=== PATIENT | male | born 1985 | race Caucasian/White ===

== ENCOUNTER 2018-12-30 22:36 | Inpatient (IN) | payer OTHER ==
[2018-12-30] MEDS ORDERED: NACL 0.9% 1000 ML 1,000 ML ONE (23:00)
[2018-12-30] MEDS ORDERED: ZOFRAN IV ONE (23:01)
[2018-12-30] MEDS ORDERED: NACL 0.9% 1000 ML 1,000 ML IV ONE (23:01)
--- NOTE | 2018-12-30 23:04 | Emergency Department Report ---
ED Abdominal Pain HPI - General Chief Complaint: Alcohol Stated Complaint: HEAD INJURY Time Seen by Provider: 12/30/18 22:59 Source: patient, EMS Mode of arrival: Stretcher Limitations: No Limitations - History of Present Illness Initial Comments: Patient is a 33-year-old male that presents emergency room with complaints of syncopal episode 1. Patient also complains of abdominal pain, nausea vomiting and diarrhea. Patient states he's had blood in both his vomitus in his stool. Patient states the pain is 10 out of 10. Patient states the pain is nonradiating. Patient states the pain is in his epigastric region. Patient states the pain is worsening. Patient states the pain is worse with vomiting and movement and palpation. He states the pain is better with rest. MD Complaint: abdominal pain -: Sudden Location: epigastric Radiation: none Migration to: no migration Severity: severe Severity scale (0 -10): 10 Quality: stabbing, sharp Consistency: constant Improves With: rest Worsens With: eating, vomiting, movement Associated Symptoms: nausea, vomiting, diarrhea, hematemesis, hematochezia, melena. denies: fever, chills, constipation, dysuria, hematuria, anorexia, syncope - Related Data Home Medications Medication Instructions Recorded Confirmed Last Taken No Known Home Medications [No 12/30/18 12/30/18 Unknown Reported Home Medications] Allergies Allergy/AdvReac Type Severity Reaction Status Date / Time No Known Allergies Allergy Unverified 12/30/18 23:10 ED Review of Systems ROS: Stated complaint: HEAD INJURY Other details as noted in HPI Constitutional: denies: chills, fever Eyes: denies: eye pain, eye discharge, vision change ENT: denies: ear pain, throat pain Respiratory: denies: cough, shortness of breath, wheezing Cardiovascular: denies: chest pain, palpitations Endocrine: no symptoms reported Gastrointestinal: abdominal pain, nausea, vomiting, diarrhea, hematemesis, melena, hematochezia. denies: constipation Genitourinary: denies: urgency, dysuria Musculoskeletal: denies: back pain, joint swelling, arthralgia Skin: denies: rash, lesions Neurological: denies: headache, weakness, paresthesias Psychiatric: denies: anxiety, depression Hematological/Lymphatic: denies: easy bleeding, easy bruising ED Past Medical Hx - Past Medical History Previous Medical History?: No - Surgical History Past Surgical History?: No - Family History Family history: no significant - Social History Smoking Status: Never Smoker Substance Use Type: Alcohol - Medications Home Medications: Home Medications Medication Instructions Recorded Confirmed Last Taken Type No Known Home Medications [No 12/30/18 12/30/18 Unknown History Reported Home Medications] ED Physical Exam - General Limitations: No Limitations, Language Barrier General appearance: alert, in no apparent distress - Head Head exam: Present: atraumatic, normocephalic - Eye Eye exam: Present: normal appearance, PERRL Pupils: Present: normal accommodation - ENT ENT exam: Present: mucous membranes moist - Neck Neck exam: Present: normal inspection - Respiratory Respiratory exam: Present: normal lung sounds bilaterally. Absent: respiratory distress - Cardiovascular Cardiovascular Exam: Present: regular rate, normal rhythm. Absent: systolic murmur, diastolic murmur, rubs, gallop - GI/Abdominal GI/Abdominal exam: Present: soft, tenderness (generalized tenderness), normal bowel sounds - Rectal Rectal exam: Present: normal rectal tone, heme (+) stool, normal prostate. Absent: hemorrhoids, tenderness - Extremities Exam Extremities exam: Present: normal inspection - Back Exam Back exam: Present: normal inspection - Neurological Exam Neurological exam: Present: alert, oriented X3 - Psychiatric Psychiatric exam: Present: normal affect, normal mood - Skin Skin exam: Present: warm, dry, intact, normal color. Absent: rash ED Course Vital Signs 12/30/18 12/31/18 12/31/18 23:00 00:01 00:31 Temperature 98.4 F Pulse Rate 101 H 93 H 102 H Respiratory 17 23 23 Rate Blood Pressure 127/83 121/69 127/83 Blood Pressure 140/80 [Left] O2 Sat by Pulse 95 96 97 Oximetry 12/31/18 01:31 Temperature Pulse Rate 92 H Respiratory 19 Rate Blood Pressure 120/73 Blood Pressure [Left] O2 Sat by Pulse 97 Oximetry - Reevaluation(s) Reevaluation #1: Patient resting in bed. Discussed all results with patient. Patient agrees with plan of care and admission. GI will be consulted. 12/31/18 01:13 - Consultations Consultation #1: GI consulted. 12/31/18 01:[address] Simona Leach. Dr. Leach wants patient nothing by mouth after midnight and admitted to the hospitalist service. 12/31/18 02:04 Consultation #2: Hospitalist consulted for admission. Hospitalist to admit patient and assume care of patient. 12/31/18 02:09 ED Medical Decision Making - Lab Data Result diagrams: 12/30/18 23:09 12/30/18 23:09 - EKG Data -: EKG Interpreted by Me EKG shows normal: sinus rhythm, axis, intervals, QRS complexes, ST-T waves Rate: normal - Radiology Data Radiology results: report reviewed FINAL REPORT PROCEDURE: CT ABDOMEN PELVIS WO CON TECHNIQUE: Computerized axial tomography of the abdomen and pelvis was performed without intravenous contrast. This study is performed without intravascular contrast material and its sensitivity for abdominal and pelvic pathology, including neoplasms, inflammatio n, abscess, free fluid, thrombosis, arterial dissection and infarction, is reduced compared with a contrast enhanced study. HISTORY: Abdominal Pain COMPARISON: No prior studies are available for comparison. FINDINGS: Visualized lower thorax: No significant abnormality. Liver: Liver is enlarged and fatty. Maximum diameter is 23 centimeters. There is no discrete mass.. Spleen: Normal size and attenuation. Gallbladder and biliary system: Normal. Pancreas: Normal. Adrenals: Normal. Kidneys: There is a 3 centimeters cyst in the midpole of the right kidney. There is a 1 centimeter stone in the midpole of the right kidney. There are no ureteral stones. There is no hydronephrosis.. GI tract: There is no bowel obstruction, colitis or enteritis. The appendix is normal.. Lymph nodes and mesentery: Normal. Vasculature: Normal. Bladder: Normal. Reproductive organs: Normal. Peritoneum: There is no ascites or free air, abscess or adenopathy.. Musculoskeletal structures: No significant abnormality. Other: None. IMPRESSION: Liver is enlarged and fatty. Maximum diameter is 23 centimeters. There is no discrete mass.. There is a 3 centimeters cyst in the midpole of the right kidney. There is a 1 centimeter stone in the midpole of the right kidney. There are no ureteral stones. There is no hydronephrosis.. There is no bowel obstruction, colitis or enteritis. The appendix is normal.. There is no ascites or free air, abscess or adenopathy.. FINAL REPORT PROCEDURE: CT HEAD/BRAIN WO CON TECHNIQUE: Computerized tomography of the head was performed without contrast material. HISTORY: Syncope COMPARISON: No prior studies are available for comparison. FINDINGS: Skull and scalp: Normal. Paranasal sinuses: Normal. Ventricles and subarachnoid spaces: Normal. Cerebrum: No evidence of hemorrhage, acute infarction or mass . Cerebellum and brainstem: No evidence of hemorrhage, acute infarction or mass. Vasculature: Normal. Comments: None. IMPRESSION: Normal Examination - Medical Decision Making Patient is a 33 year-old male that presents to the emergency room with complaints of abdominal pain, nausea vomiting, blood in his stool or vomitus, and syncopal episode. Syncope secondary to alcohol. Labs unremarkable except for hemoconcentration, hypokalemia,.. Blood alcohol level is elevated. D-dimer negative. The back given the patient saline bolus given the patient. Patient' s guaiac positive. GI consult and wants patient admitted. Hospitalist will admit patient. CT done of the head negative. CT scan of the abdomen was negative for acute findings except for fatty liver\ - Differential Diagnosis abdominal pain. Gastritis. Alcoholism. Nausea vomiting. GI bleed. Critical Care Time: Yes Critical care attestation.: If time is entered above; I have spent that time in minutes in the direct care of this critically ill patient, excluding procedure time. Critical Care Time: 45 minutes ED Disposition Clinical Impression: Blood in stool, Alcohol abuse Abdominal pain Qualifiers: Abdominal location: epigastric Qualified Code(s): R10.13 - Epigastric pain GI bleed Qualifiers: GI bleed type/associated pathology: gastritis Gastritis type: alcoholic Qualifi ed Code(s): K29.21 - Alcoholic gastritis with bleeding Gastritis Qualifiers: Gastritis type: alcoholic Chronicity: acute Gastritis bleeding: with bleeding Qualified Code(s): K29.21 - Alcoholic gastritis with bleeding Syncope Qualifiers: Syncope type: unspecified Qualified Code(s): R55 - Syncope and collapse Bloody vomitus Qualifiers: Nausea presence: with nausea Qualified Code(s): K92.0 - Hematemesis Disposition: 09 OP ADMIT IP TO THIS HOSP Is pt being admited?: Yes Does the pt Need Aspirin: No Condition: Critical Time of Disposition: 02:09
[2018-12-30 23:38] LABS: Basophils % (Auto) 0.5 % (0.0-1.8); Eosinophils # (Auto) 0.1 K/mm3 (0.0-0.4); Eosinophils % (Auto) 2.1 % (0.0-4.3); Hematocrit 45.8 % (35.5-45.6); Hemoglobin 15.6 gm/dl (11.8-15.2); Lymphocytes # (Auto) 1.1 K/mm3 (1.2-5.4); Lymphocytes % (Auto) 37.6 % (13.4-35.0); Mean Corpuscular HGB Conc 34 % (32-34); Mean Corpuscular Volume 96 fl (84-94); Monocytes # (Auto) 0.3 K/mm3 (0.0-0.8); Monocytes % (Auto) 10.3 % (0.0-7.3); Red Blood Count 4.76 M/mm3 (3.65-5.03); Red Cell Distribution Width 14.8 % (13.2-15.2)
[2018-12-30 23:42] LABS: Platelet Count 86 K/mm3 (140-440)
[2018-12-31 00:02] LABS: Creatine Kinase MB 2.2 ng/mL (0.0-4.0)
[2018-12-31 00:04] LABS: Alanine Aminotransferase 158 units/L (7-56); Albumin 4.8 g/dL (3.9-5); BUN/Creatinine Ratio 5; Blood Urea Nitrogen 3 mg/dL (9-20); Calcium 8.9 mg/dL (8.4-10.2); Hemolysis Index 11
[2018-12-31 00:06] LABS: Bilirubin,Direct < 0.2 mg/dL (0-0.2)
--- NOTE | 2018-12-31 00:54 | Cat Scan Report ---
FINAL REPORT PROCEDURE: CT HEAD/BRAIN WO CON TECHNIQUE: Computerized tomography of the head was performed without contrast material. HISTORY: Syncope COMPARISON: No prior studies are available for comparison. FINDINGS: Skull and scalp: Normal. Paranasal sinuses: Normal. Ventricles and subarachnoid spaces: Normal. Cerebrum: No evidence of hemorrhage, acute infarction or mass . Cerebellum and brainstem: No evidence of hemorrhage, acute infarction or mass. Vasculature: Normal. Comments: None. IMPRESSION: Normal Examination
--- NOTE | 2018-12-31 00:57 | Cat Scan Report ---
FINAL REPORT PROCEDURE: CT ABDOMEN PELVIS WO CON TECHNIQUE: Computerized axial tomography of the abdomen and pelvis was performed without intravenous contrast. This study is performed without intravascular contrast material and its sensitivity for ab dominal and pelvic pathology, including neoplasms, inflammation, abscess, free fluid, thrombosis, art erial dissection and infarction, is reduced compared with a contrast enhanced study. HISTORY: Abdominal Pain COMPARISON: No prior studies are available for comparison. FINDINGS: Visualized lower thorax: No significant abnormality. Liver: Liver is enlarged and fatty. Maximum diameter is 23 centimeters. There is no discrete mass.. Spleen: Normal size and attenuation. Gallbladder and biliary system: Normal. Pancreas: Normal. Adrenals: Normal. Kidneys: There is a 3 centimeters cyst in the midpole of the right kidney. There is a [address] one in the midpole of the right kidney. There are no ureteral stones. There is no hydronephrosis.. GI tract: There is no bowel obstruction, colitis or enteritis. The appendix is normal.. Lymph nodes and mesentery: Normal. Vasculature: Normal. Bladder: Normal. Reproductive organs: Normal. Peritoneum: There is no ascites or free air, abscess or adenopathy.. Musculoskeletal structures: No significant abnormality. Other: None. IMPRESSION: Liver is enlarged and fatty. Maximum diameter is 23 centimeters. There is no discrete mass.. There is a 3 centimeters cyst in the midpole of the right kidney. There is a 1 centimeter stone in th e midpole of the right kidney. There are no ureteral stones. There is no hydronephrosis.. There is no bowel obstruction, colitis or enteritis. The appendix is normal.. There is no ascites or free air, abscess or adenopathy.. .
[2018-12-31] MEDS ORDERED: FOLVITE 1 MG, INFUVITE 10 ML in NACL 0.9% 1000 ML 1,000 ML IV ONE (01:02)
[2018-12-31] MEDS ORDERED: VITAMIN B-1 PO ONE (02:00)
[2018-12-31] MEDS ORDERED: PROTONIX IV ONE (02:13)
[2018-12-31] MEDS ORDERED: TYLENOL PO PRN (02:33)
[2018-12-31] MEDS ORDERED: ZOFRAN IV PRN (02:33)
[2018-12-31] MEDS ORDERED: SODIUM CHLORIDE FLUSH SYRINGE 10 ML IV PRN (02:33)
[2018-12-31] MEDS ORDERED: MORPHINE IV PRN (02:33)
[2018-12-31] MEDS ORDERED: ATIVAN IV PRN ×2 (02:35)
--- NOTE | 2018-12-31 02:51 | History and Physical Report ---
History of Present Illness Date of examination: 12/31/18 History of present illness: 33-year-old man with a history of alcohol abuse comes emergency room with complaints of nausea, vomiting, diarrhea. Patient states that he took episodes of blood in his vomitus, 2 episodes, also had one episode of melena. He complains of abdominal pain, mid abdomen, dull, unable to say how long it lasts 4, intensity 5/10, no radiation, candidate and exacerbated factor. He stated he had decreased oral intake, feels weak, states he passed out for a few seconds Review of systems Constitutional: no weight loss, chills, fever Ears, eyes, nose, mouth and throat: no nasal congestion, no nasal discharge, no sinus pressure, no vision change, no red eye. Neck: No neck pain or rigidity. Cardiovascular: no palpitations, chest pain Respiratory: no cough, shortness of breath Gastrointestinal: +hematochezia, abdominal pain Genitourinary : no frequency , no hematuria Musculoskeletal: no joint swelling or muscle ache Integumentary: no rash, no pruritis Neurological: no parathesias, no focal weakness Endocrine: no cold or heat intolerance, no polyuria or polydipsia Hematologic/Lymphatic: no easy bruising, no easy bleeding, no gland swelling Allergic/Immunologic: no urticaria, no angioedema. PAST MEDICAL HISTORY: alcohol abuse PAST SURGICAL HISTORY: None SOCIAL HISTORY: Drink 25 beers a day, no drugs, smoke one pack a day FAMILY HISTORY: Hypertension Medications and Allergies Allergies Allergy/AdvReac Type Severity Reaction Status Date / Time No Known Allergies Allergy Unverified 12/30/18 23:10 Home Medications Medication Instructions Recorded Confirmed Last Taken Type No Known Home Medications [No 12/30/18 12/30/18 Unknown History Reported Home Medications] Active Meds: Active Medications Acetaminophen (Tylenol) 650 mg PO Q4H PRN PRN Reason: Pain MILD(1-3)/Fever >100.5/DONATO Folic Acid 1 mg/ Multivitamins /Minerals 10 ml/ Sodium Chloride 1,010.2 mls @ 250 mls/hr IV ONCE ONE Stop: 12/31/18 05:04 Last Admin: 12/31/18 01:26 Dose: 250 mls/hr Documented by: Sodium Chloride (Nacl 0.9% 1000 Ml) 1,000 mls @ 125 mls/hr IV DIRECT ROBIN Lorazepam (Ativan) 2 mg IV Q1HR PRN PRN Reason: CIWA-Ar 8-15 Lorazepam (Ativan) 4 mg IV Q1HR PRN PRN Reason: CIWA-Ar 16-25 Morphine Sulfate (Morphine) 2 mg IV Q4H PRN PRN Reason: Pain, Moderate (4-6) Ondansetron HCl (Zofran) 4 mg IV Q4H PRN PRN Reason: Nausea And Vomiting Pantoprazole Sodium (Protonix) 40 mg IV DAILY ROBIN Sodium Chloride (Sodium Chloride Flush Syringe 10 Ml) 10 ml IV BID ROBIN Sodium Chloride (Sodium Chloride Flush Syringe 10 Ml) 10 ml IV PRN PRN PRN Reason: LINE FLUSH Exam - Physical Exam Narrative exam: General Apperance: The patient lying in bed, breathing comfortable HEENT: Normocephalic, atraumatic. Pupils equally round and reactive to light, EOMI, no sclericterus or JVD or thyromegaly or nodule. , no carotid bruit, mucous membranes moist, no exudate or erythema Heart: S1-S2, regular is rhythm Lungs: Clear to auscultation bilaterally, breathing comfortable Abdomen: Positive bowel sounds, soft, nontender, nondistended, no organomegaly Extremities: No edema cyanosis clubbing Skin: no rash, nodule, warm and dry Neuro: cranial nerves 2-12 intact, speech is fluent, motor/sensory intact - Constitutional Vitals: Temp Pulse Resp BP Pulse Ox 98.4 F 90 21 104/59 92 12/30/18 23:00 12/31/18 02:31 12/31/18 02:31 12/31/18 02:31 12/31/18 02:31 Results - Labs CBC & Chem 7: 12/30/18 23:09 12/30/18 23:09 Labs: Abnormal lab results 12/30/18 12/30/18 12/30/18 Range/Units 23:09 23:09 23:09 WBC 2.9 L (4.5-11.0) K/mm3 Hgb 15.6 H (11.8-15.2) gm/dl Hct 45.8 H (35.5-45.6) % MCV 96 H (84-94) fl MCH 33 H (28-32) pg Plt Count 86 L (140-440) K/mm3 Lymph % (Auto) 37.6 H (13.4-35.0) % [place] % (Auto) 10.3 H (0.0-7.3) % Lymph # 1.1 L (1.2-5.4) K/mm3 Seg Neutrophils # 1.5 L (1.8-7.7) K/mm3 Potassium 3.3 L (3.6-5.0) mmol/L Carbon Dioxide 19 L (22-30) mmol/L BUN 3 L (9-20) mg/dL Creatinine 0.6 L (0.8-1.5) mg/dL AST 159 H (5-40) units/L ALT 158 H (7-56) units/L Total Creatine Kinase 362 H (55-170) units/L Plasma/Serum Alcohol (0-0.07) % 12/30/18 Range/Units 23:09 WBC (4.5-11.0) K/mm3 Hgb (11.8-15.2) gm/dl Hct (35.5-45.6) % MCV (84-94) fl MCH (28-32) pg Plt Count (140-440) K/mm3 Lymph % (Auto) (13.4-35.0) % [place] % (Auto) (0.0-7.3) % Lymph # (1.2-5.4) K/mm3 Seg Neutrophils # (1.8-7.7) K/mm3 Potassium (3.6-5.0) mmol/L Carbon Dioxide (22-30) mmol/L BUN (9-20) mg/dL Creatinine (0.8-1.5) mg/dL AST (5-40) units/L ALT (7-56) units/L Total Creatine Kinase (55-170) units/L Plasma/Serum Alcohol 0.34 H (0-0.07) % - Imaging and Cardiology CT scan - abdomen: report reviewed CT Scan - head: report reviewed CT scan - pelvis: report reviewed Assessment and Plan Assessment GIB, rule out ulcer versus other Gastroenteritis Alcohol abuse Thrombocytopenia Plan Admit to medicine Start IV fluid, Protonix Check serial hemoglobin, consult GI Check stool studies, amylase, lipase start CIWA protocol with IV Ativan DVT prophylaxis
[2018-12-31] MEDS ORDERED: NACL 0.9% 1000 ML 1,000 ML IV SCH ×2 (03:00→16:00)
[2018-12-31 03:25] LABS: Basophils % (Auto) 0.6 % (0.0-1.8); Eosinophils # (Auto) 0.1 K/mm3 (0.0-0.4); Eosinophils % (Auto) 2.2 % (0.0-4.3); Hematocrit 41.3 % (35.5-45.6); Hemoglobin 13.8 gm/dl (11.8-15.2); Lymphocytes # (Auto) 1.1 K/mm3 (1.2-5.4); Mean Corpuscular HGB Conc 33 % (32-34); Mean Corpuscular Volume 97 fl (84-94); Monocytes # (Auto) 0.2 K/mm3 (0.0-0.8); Monocytes % (Auto) 10.4 % (0.0-7.3); Red Blood Count 4.27 M/mm3 (3.65-5.03); Red Cell Distribution Width 14.7 % (13.2-15.2)
[2018-12-31 03:38] LABS: Platelet Count 62 K/mm3 (140-440)
[2018-12-31 03:42] LABS: BUN/Creatinine Ratio 5; Blood Urea Nitrogen 3 mg/dL (9-20); Calcium 7.7 mg/dL (8.4-10.2); Hemolysis Index 7
[2018-12-31] MEDS ORDERED: D5/0.45NS 1,000 ML IV ONE (04:27)
[2018-12-31] MEDS ORDERED: D50W (25GM) Syringe IV ONE ×2 (04:29→04:34)
[2018-12-31] MEDS: D5/0.45NS 1,000 ML IV SCH ×2 (04:36→11:08)
[2018-12-31 06:20] LABS: Hematocrit 39.5 % (35.5-45.6); Hemoglobin 13.4 gm/dl (11.8-15.2)
[2018-12-31] MEDS ORDERED: SODIUM CHLORIDE FLUSH SYRINGE 10 ML IV SCH (10:00)
[2018-12-31] MEDS ORDERED: PROTONIX IV SCH ×2 (10:00→11:00)
--- NOTE | 2018-12-31 10:12 | Gastroenterology Consultation ---
<DARI LINDSEY - Last Filed: 12/31/18 10:35> History of Present Illness - Reason for Consult Consult date: 12/31/18 GI bleed Requesting physician: LAST DAWN - History of Present Illness Patient is a 33 y/o male with PMH DM and ETOH abuse who presented to ED with c/o a syncopal episode (head CT negative; etiology likely 2/2 alcohol; blood alcohol level elevated upon admission), epigastric pain, and N/V with bloody emesis and dark stool to which GI has been consulted. Abd CT showed enlarged fatty liver but no acute findings. This morning patient was resting in bed w/o acute distress. 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 He reports N/V x 3 days with first 2 episodes with non-bloody emesis and then subsequent episodes with bright red bloody emesis. Admits to associated epigastric pain and chest discomfort/sore throat, along with dark stools (black/dark red) that began 2 days ago. He also previously had diarrhea which has now resolved. Denies fever, SOB, wt loss, dysphagia, or constipation. No hx of PUD or liver disease but has a hx of heavy alcohol use (25 beers/day). Underwent an EGD approximately 5 years ago with negative results per patient report. Past History Past Medical History: diabetes Past Surgical History: No surgical history Social history: alcohol abuse. denies: smoking Medications and Allergies Allergies Allergy/AdvReac Type Severity Reaction Status Date / Time No Known Allergies Allergy Unverified 12/30/18 23:10 Home Medications Medication Instructions Recorded Confirmed Last Taken Type Pantoprazole [Protonix] 40 mg PO QDAY #30 tablet 12/31/18 Unknown Rx Thiamine [Vitamin B-1] 100 mg PO QDAY #30 tablet 12/31/18 Unknown Rx Active Meds: Active Medications Acetaminophen (Tylenol) 650 mg PO Q4H PRN PRN Reason: Pain MILD(1-3)/Fever >100.5/DONATO Dextrose/Sodium Chloride (D5/0.45ns) 1,000 mls @ 125 mls/hr IV DIRECT ROBIN Last Admin: 12/31/18 04:36 Dose: 125 mls/hr Documented by: Lorazepam (Ativan) 2 mg IV Q1HR PRN PRN Reason: CIWA-Ar 8-15 Lorazepam (Ativan) 4 mg IV Q1HR PRN PRN Reason: CIWA-Ar 16-25 Last Admin: 12/31/18 03:30 Dose: 4 mg Documented by: Morphine Sulfate (Morphine) 2 mg IV Q4H PRN PRN Reason: Pain, Moderate (4-6) Ondansetron HCl (Zofran) 4 mg IV Q4H PRN PRN Reason: Nausea And Vomiting Sodium Chloride (Sodium Chloride Flush Syringe 10 Ml) 10 ml IV BID ROBIN Sodium Chloride (Sodium Chloride Flush Syringe 10 Ml) 10 ml IV PRN PRN PRN Reason: LINE FLUSH medications reviewed/updated as required Review of Systems - Review of Systems All systems: negative Gastrointestinal: abdominal pain, hematemesis, melena, other (sore throat/chest discomfort) Exam - Constitutional Vital Signs: Temp Pulse Resp BP Pulse Ox 98.4 F 90 18 107/63 96 12/31/18 07:19 12/31/18 07:19 12/31/18 07:19 12/31/18 07:19 12/31/18 07:19 General appearance: no acute distress - EENT Eyes: PERRL, EOM intact ENT: hearing intact - Respiratory Respiratory: bilateral: CTA - Cardiovascular Rhythm: regular Heart Sounds: Present: S1 & S2 - Gastrointestinal General gastrointestinal: Present: soft, tender (slight TTP in epigastric area), non-distended, normal bowel sounds - Neurologic Neurological: alert and oriented x3 - Labs CBC & Chem 7: 12/31/18 10:02 12/31/18 09:48 Lab Results: Laboratory Results - last 24 hr 12/30/18 12/30/18 12/30/18 23:09 23:09 23:09 WBC 2.9 L RBC 4.76 Hgb 15.6 H Hct 45.8 H MCV 96 H MCH 33 H MCHC 34 RDW 14.8 Plt Count 86 L Lymph % (Auto) 37.6 H [place] % (Auto) 10.3 H Eos % (Auto) 2.1 Baso % (Auto) 0.5 Lymph # 1.1 L [place] # 0.3 Eos # 0.1 Baso # 0.0 Seg Neutrophils % 49.5 Seg Neutrophils # 1.5 L D-Dimer Sodium 143 Potassium 3.3 L Chloride 102.1 Carbon Dioxide 19 L Anion Gap 25 BUN 3 L Creatinine 0.6 L Estimated GFR > 60 BUN/Creatinine Ratio 5 Glucose 92 POC Glucose Calcium 8.9 Total Bilirubin 0.70 Direct Bilirubin < 0.2 Indirect Bilirubin 0.5 AST 159 H ALT 158 H Alkaline Phosphatase 93 Total Creatine Kinase 362 H CK-MB (CK-2) 2.2 CK-MB (CK-2) Rel Index 0.6 Troponin T < 0.010 Total Protein 8.0 Albumin 4.8 Albumin/Globulin Ratio 1.5 Amylase Lipase 40 Plasma/Serum Alcohol Blood Type Antibody Screen 12/30/18 12/30/18 12/30/18 23:09 23:09 23:09 WBC RBC Hgb Hct MCV MCH MCHC RDW Plt Count Lymph % (Auto) [place] % (Auto) Eos % (Auto) Baso % (Auto) Lymph # [place] # Eos # Baso # Seg Neutrophils % Seg Neutrophils # D-Dimer 230.21 Sodium Potassium Chloride Carbon Dioxide Anion Gap BUN Creatinine Estimated GFR BUN/Creatinine Ratio Glucose POC Glucose Calcium Total Bilirubin Direct Bilirubin Indirect Bilirubin AST ALT Alkaline Phosphatase Total Creatine Kinase CK-MB (CK-2) CK-MB (CK-2) Rel Index Troponin T Total Protein Albumin Albumin/Globulin Ratio Amylase 80 Lipase Plasma/Serum Alcohol 0.34 H Blood Type Antibody Screen 12/30/18 12/31/18 12/31/18 23:09 03:08 03:08 WBC 2.4 L RBC 4.27 Hgb 13.8 Hct 41.3 MCV 97 H MCH 32 MCHC 33 RDW 14.7 Plt Count 62 L Lymph % (Auto) 46.0 H [place] % (Auto) 10.4 H Eos % (Auto) 2.2 Baso % (Auto) 0.6 Lymph # 1.1 L [place] # 0.2 Eos # 0.1 Baso # 0.0 Seg Neutrophils % 40.8 Seg Neutrophils # 1.0 L D-Dimer Sodium 143 Potassium 3.6 Chloride 106.4 Carbon Dioxide 21 L Anion Gap 19 BUN 3 L Creatinine 0.6 L Estimated GFR > 60 BUN/Creatinine Ratio 5 Glucose 77 POC Glucose Calcium 7.7 L Total Bilirubin Direct Bilirubin Indirect Bilirubin AST ALT Alkaline Phosphatase Total Creatine Kinase CK-MB (CK-2) CK-MB (CK-2) Rel Index Troponin T Total Protein Albumin Albumin/Globulin Ratio Amylase Lipase Plasma/Serum Alcohol Blood Type O POSITIVE Antibody Screen Negative 12/31/18 12/31/18 12/31/18 03:11 04:21 05:42 WBC RBC Hgb 13.4 Hct 39.5 MCV MCH MCHC RDW Plt Count Lymph % (Auto) [place] % (Auto) Eos % (Auto) Baso % (Auto) Lymph # [place] # Eos # Baso # Seg Neutrophils % Seg Neutrophils # D-Dimer Sodium Potassium Chloride Carbon Dioxide Anion Gap BUN Creatinine Estimated GFR BUN/Creatinine Ratio Glucose POC Glucose 60 L Calcium Total Bilirubin Direct Bilirubin Indirect Bilirubin AST ALT Alkaline Phosphatase Total Creatine Kinase CK-MB (CK-2) CK-MB (CK-2) Rel Index Troponin T Total Protein Albumin Albumin/Globulin Ratio Amylase 63 Lipase 36 Plasma/Serum Alcohol Blood Type Antibody Screen 12/31/18 06:26 WBC RBC Hgb Hct MCV MCH MCHC RDW Plt Count Lymph % (Auto) [place] % (Auto) Eos % (Auto) Baso % (Auto) Lymph # [place] # Eos # Baso # Seg Neutrophils % Seg Neutrophils # D-Dimer Sodium Potassium Chloride Carbon Dioxide Anion Gap BUN Creatinine Estimated GFR BUN/Creatinine Ratio Glucose POC Glucose 136 H Calcium Total Bilirubin Direct Bilirubin Indirect Bilirubin AST ALT Alkaline Phosphatase Total Creatine Kinase CK-MB (CK-2) CK-MB (CK-2) Rel Index Troponin T Total Protein Albumin Albumin/Globulin Ratio Amylase Lipase Plasma/Serum Alcohol Blood Type Antibody Screen Assessment and Plan 1.GI bleed 2.hematemesis/dark stool (melena?) 3.epigastric pain 5.ETOH abuse -afebrile, WBC 2.4 -H/H 13.4/39.5 -continue to monitor H/H and transfuse as needed -transaminitis-AST 159/ALT 158 -lipase WNL -plt 62, INR pending -abd CT showed enlarged fatty liver -patient reports N/V x 3 days with hematemesis noted after first 2 episodes of vomiting and dark stools x 2 day- upon exam this am, patient had an episode vomiting with a scant amount of bright red bloody emesis -currently HD stable -etiology-possibly 2/2 M-W tear vs esophagitis vs ulcer vs other (doubt varices given H/H and BUN WNL) -will schedule for EGD today -Neep NPO -continue PPI -continue to trend labs and supportive care -alcohol cessation discussed with patient-monitor for signs of withdrawal -will follow <SANTI MEHTA R - Last Filed: 12/31/18 16:30> Medications and Allergies Active Meds: Active Medications Acetaminophen (Tylenol) 650 mg PO Q4H PRN PRN Reason: Pain MILD(1-3)/Fever >100.5/DONATO Dextrose/Sodium Chloride (D5/0.45ns) 1,000 mls @ 125 mls/hr IV DIRECT [facility] Last Admin: 12/31/18 11:08 Dose: 125 mls/hr Documented by: Sodium Chloride (Nacl 0.9% 1000 Ml) 1,000 mls @ 50 mls/hr IV DIRECT [facility] Last Admin: 12/31/18 15:51 Dose: 50 mls/hr Documented by: Lorazepam (Ativan) 2 mg IV Q1HR PRN PRN Reason: Mayank 8-15 Last Admin: 12/31/18 11:00 Dose: 2 mg Documented by: Lorazepam (Ativan) 4 mg IV Q1HR PRN PRN Reason: Mayank 16-25 Last Admin: 12/31/18 03:30 Dose: 4 mg Documented by: Morphine Sulfate (Morphine) 2 mg IV Q4H PRN PRN Reason: Pain, Moderate (4-6) Ondansetron HCl (Zofran) 4 mg IV Q4H PRN PRN Reason: Nausea And Vomiting Pantoprazole Sodium (Protonix) 40 mg IV BID [facility] Last Admin: 12/31/18 10:59 Dose: 40 mg Documented by: Sodium Chloride (Sodium Chloride Flush Syringe 10 Ml) 10 ml IV BID [facility] Last Admin: 12/31/18 10:59 Dose: 10 ml Documented by: Sodium Chloride (Sodium Chloride Flush Syringe 10 Ml) 10 ml IV PRN PRN PRN Reason: LINE FLUSH Exam - Constitutional Vital Signs: Temp Pulse Resp BP Pulse Ox 98.3 F 99 H 21 134/80 93 12/31/18 15:44 12/31/18 15:44 12/31/18 15:44 12/31/18 15:44 12/31/18 15:44 - Labs CBC & Chem 7: 12/31/18 10:02 12/31/18 09:48 Lab Results: Laboratory Results - last 24 hr 12/30/18 12/30/18 12/30/18 23:09 23:09 23:09 WBC 2.9 L RBC 4.76 Hgb 15.6 H Hct 45.8 H MCV 96 H MCH 33 H MCHC 34 RDW 14.8 Plt Count 86 L Lymph % (Auto) 37.6 H [place] % (Auto) 10.3 H Eos % (Auto) 2.1 Baso % (Auto) 0.5 Lymph # 1.1 L [place] # 0.3 Eos # 0.1 Baso # 0.0 Seg Neutrophils % 49.5 Seg Neutrophils # 1.5 L PT INR D-Dimer Sodium 143 Potassium 3.3 L Chloride 102.1 Carbon Dioxide 19 L Anion Gap 25 BUN 3 L Creatinine 0.6 L Estimated GFR > 60 BUN/Creatinine Ratio 5 Glucose 92 POC Glucose Calcium 8.9 Total Bilirubin 0.70 Direct Bilirubin < 0.2 Indirect Bilirubin 0.5 AST 159 H ALT 158 H Alkaline Phosphatase 93 Total Creatine Kinase 362 H CK-MB (CK-2) 2.2 CK-MB (CK-2) Rel Index 0.6 Troponin T < 0.010 Total Protein 8.0 Albumin 4.8 Albumin/Globulin Ratio 1.5 Amylase Lipase 40 Plasma/Serum Alcohol Blood Type Antibody Screen 12/30/18 12/30/18 12/30/18 23:09 23:09 23:09 WBC RBC Hgb Hct MCV MCH MCHC RDW Plt Count Lymph % (Auto) [place] % (Auto) Eos % (Auto) Baso % (Auto) Lymph # [place] # Eos # Baso # Seg Neutrophils % Seg Neutrophils # PT INR D-Dimer 230.21 Sodium Potassium Chloride Carbon Dioxide Anion Gap BUN Creatinine Estimated GFR BUN/Creatinine Ratio Glucose POC Glucose Calcium Total Bilirubin Direct Bilirubin Indirect Bilirubin AST ALT Alkaline Phosphatase Total Creatine Kinase CK-MB (CK-2) CK-MB (CK-2) Rel Index Troponin T Total Protein Albumin Albumin/Globulin Ratio Amylase 80 Lipase Plasma/Serum Alcohol 0.34 H Blood Type Antibody Screen 12/30/18 12/31/18 12/31/18 23:09 03:08 03:08 WBC 2.4 L RBC 4.27 Hgb 13.8 Hct 41.3 MCV 97 H MCH 32 MCHC 33 RDW 14.7 Plt Count 62 L Lymph % (Auto) 46.0 H [place] % (Auto) 10.4 H Eos % (Auto) 2.2 Baso % (Auto) 0.6 Lymph # 1.1 L [place] # 0.2 Eos # 0.1 Baso # 0.0 Seg Neutrophils % 40.8 Seg Neutrophils # 1.0 L PT INR D-Dimer Sodium 143 Potassium 3.6 Chloride 106.4 Carbon Dioxide 21 L Anion Gap 19 BUN 3 L Creatinine 0.6 L Estimated GFR > 60 BUN/Creatinine Ratio 5 Glucose 77 POC Glucose Calcium 7.7 L Total Bilirubin Direct Bilirubin Indirect Bilirubin AST ALT Alkaline Phosphatase Total Creatine Kinase CK-MB (CK-2) CK-MB (CK-2) Rel Index Troponin T Total Protein Albumin Albumin/Globulin Ratio Amylase Lipase Plasma/Serum Alcohol Blood Type O POSITIVE Antibody Screen Negative 12/31/18 12/31/18 12/31/18 03:11 04:21 05:42 WBC RBC Hgb 13.4 Hct 39.5 MCV MCH MCHC RDW Plt Count Lymph % (Auto) [place] % (Auto) Eos % (Auto) Baso % (Auto) Lymph # [place] # Eos # Baso # Seg Neutrophils % Seg Neutrophils # PT INR D-Dimer Sodium Potassium Chloride Carbon Dioxide Anion Gap BUN Creatinine Estimated GFR BUN/Creatinine Ratio Glucose POC Glucose 60 L Calcium Total Bilirubin Direct Bilirubin Indirect Bilirubin AST ALT Alkaline Phosphatase Total Creatine Kinase CK-MB (CK-2) CK-MB (CK-2) Rel Index Troponin T Total Protein Albumin Albumin/Globulin Ratio Amylase 63 Lipase 36 Plasma/Serum Alcohol Blood Type Antibody Screen 12/31/18 12/31/18 12/31/18 06:26 09:48 09:48 WBC RBC Hgb Hct MCV MCH MCHC RDW Plt Count Lymph % (Auto) [place] % (Auto) Eos % (Auto) Baso % (Auto) Lymph # [place] # Eos # Baso # Seg Neutrophils % Seg Neutrophils # PT 14.2 INR 1.06 D-Dimer Sodium 142 Potassium 3.5 L Chloride 105.1 Carbon Dioxide 22 Anion Gap 18 BUN 2 L Creatinine 0.5 L Estimated GFR > 60 BUN/Creatinine Ratio 4 Glucose 108 H POC Glucose 136 H Calcium 7.6 L Total Bilirubin 0.90 Direct Bilirubin Indirect Bilirubin AST 141 H ALT 133 H Alkaline Phosphatase 73 Total Creatine Kinase CK-MB (CK-2) CK-MB (CK-2) Rel Index Troponin T Total Protein 7.1 Albumin 4.4 Albumin/Globulin Ratio 1.6 Amylase Lipase Plasma/Serum Alcohol Blood Type Antibody Screen 12/31/18 12/31/18 10:02 11:56 WBC RBC Hgb 14.0 Hct 40.8 MCV MCH MCHC RDW Plt Count Lymph % (Auto) [place] % (Auto) Eos % (Auto) Baso % (Auto) Lymph # [place] # Eos # Baso # Seg Neutrophils % Seg Neutrophils # PT INR D-Dimer Sodium Potassium Chloride Carbon Dioxide Anion Gap BUN Creatinine Estimated GFR BUN/Creatinine Ratio Glucose POC Glucose 89 Calcium Total Bilirubin Direct Bilirubin Indirect Bilirubin AST ALT Alkaline Phosphatase Total Creatine Kinase CK-MB (CK-2) CK-MB (CK-2) Rel Index Troponin T Total Protein Albumin Albumin/Globulin Ratio Amylase Lipase Plasma/Serum Alcohol Blood Type Antibody Screen Assessment and Plan Pt drinks approx 25 beers/d. States has not seen blood in stool recently. EGD planned.
[2018-12-31 10:13] LABS: Hematocrit 40.8 % (35.5-45.6)
[2018-12-31 10:26] LABS: INR 1.06 (0.87-1.13)
[2018-12-31 10:33] LABS: Alanine Aminotransferase 133 units/L (7-56); Albumin 4.4 g/dL (3.9-5); BUN/Creatinine Ratio 4; Blood Urea Nitrogen 2 mg/dL (9-20); Calcium 7.6 mg/dL (8.4-10.2); Hemolysis Index 8
--- NOTE | 2018-12-31 11:56 | Progress Note ---
Assessment and Plan Upper GI bleed - presented with hematemesis/dark stool (melena?) - -etiology-possibly 2/2 M-W tear vs esophagitis vs ulcer vs other -- plan for EGD today, monitor h/h, cont iv fluid - cont PPI Alcohol abuse, monitor for withdrawal Transamionitis, likley from alcohol abuse -lipase WNL -plt 62, INR normal -abd CT showed enlarged fatty liver thrombocytopenia, likely from chronic alcohol abuse DVt Px, SCD Brief History: Patient is a 33 y/o male with PMH DM and ETOH abuse who presented to ED with c/o a syncopal episode (head CT negative; etiology likely 2/2 alcohol; blood alcohol level elevated upon admission), epigastric pain, and N/V with bloody emesis and dark stool, GI has been consulted. Abd CT showed enlarged fatty liver but no acute findings. Plan for EGD today. Subjective Date of service: 12/31/18 Objective - Constitutional Vitals: Vital Signs - 12hr 12/31/18 12/31/18 12/31/18 00:01 00:31 01:31 Temperature Pulse Rate 93 H 102 H 92 H Respiratory 23 23 19 Rate Blood Pressure 121/69 127/83 120/73 O2 Sat by Pulse 96 97 97 Oximetry 12/31/18 12/31/18 12/31/18 02:31 03:00 03:31 Temperature Pulse Rate 90 84 79 Respiratory 21 19 22 Rate Blood Pressure 104/59 106/57 106/62 O2 Sat by Pulse 92 94 96 Oximetry 12/31/18 12/31/18 12/31/18 04:00 04:11 04:21 Temperature Pulse Rate 87 90 88 Respiratory 21 20 23 Rate Blood Pressure 113/55 106/57 106/57 O2 Sat by Pulse 94 95 94 Oximetry 12/31/18 12/31/18 12/31/18 04:31 04:40 05:05 Temperature Pulse Rate 89 97 H 90 Respiratory 19 22 Rate Blood Pressure 106/57 103/61 O2 Sat by Pulse 97 100 Oximetry 12/31/18 12/31/18 05:15 07:19 Temperature 98.1 F 98.4 F Pulse Rate 90 90 Respiratory 17 18 Rate Blood Pressure 102/64 107/63 O2 Sat by Pulse 96 96 Oximetry - Labs CBC & Chem 7: 12/31/18 10:02 12/31/18 09:48 Labs: Abnormal lab results 12/30/18 12/30/18 12/30/18 Range/Units 23:09 23:09 23:09 WBC 2.9 L (4.5-11.0) K/mm3 Hgb 15.6 H (11.8-15.2) gm/dl Hct 45.8 H (35.5-45.6) % MCV 96 H (84-94) fl MCH 33 H (28-32) pg Plt Count 86 L (140-440) K/mm3 Lymph % (Auto) 37.6 H (13.4-35.0) % [place] % (Auto) 10.3 H (0.0-7.3) % Lymph # 1.1 L (1.2-5.4) K/mm3 Seg Neutrophils # 1.5 L (1.8-7.7) K/mm3 Potassium 3.3 L (3.6-5.0) mmol/L Carbon Dioxide 19 L (22-30) mmol/L BUN 3 L (9-20) mg/dL Creatinine 0.6 L (0.8-1.5) mg/dL Glucose (75-100) mg/dL POC Glucose (70-105) Calcium (8.4-10.2) mg/dL AST 159 H (5-40) units/L ALT 158 H (7-56) units/L Total Creatine Kinase 362 H (55-170) units/L Plasma/Serum Alcohol (0-0.07) % 12/30/18 12/31/18 12/31/18 Range/Units 23:09 03:08 03:08 WBC 2.4 L (4.5-11.0) K/mm3 Hgb (11.8-15.2) gm/dl Hct (35.5-45.6) % MCV 97 H (84-94) fl MCH (28-32) pg Plt Count 62 L (140-440) K/mm3 Lymph % (Auto) 46.0 H (13.4-35.0) % [place] % (Auto) 10.4 H (0.0-7.3) % Lymph # 1.1 L (1.2-5.4) K/mm3 Seg Neutrophils # 1.0 L (1.8-7.7) K/mm3 Potassium (3.6-5.0) mmol/L Carbon Dioxide 21 L (22-30) mmol/L BUN 3 L (9-20) mg/dL Creatinine 0.6 L (0.8-1.5) mg/dL Glucose (75-100) mg/dL POC Glucose (70-105) Calcium 7.7 L (8.4-10.2) mg/dL AST (5-40) units/L ALT (7-56) units/L Total Creatine Kinase (55-170) units/L Plasma/Serum Alcohol 0.34 H (0-0.07) % 12/31/18 12/31/18 12/31/18 Range/Units 04:21 06:26 09:48 WBC (4.5-11.0) K/mm3 Hgb (11.8-15.2) gm/dl Hct (35.5-45.6) % MCV (84-94) fl MCH (28-32) pg Plt Count (140-440) K/mm3 Lymph % (Auto) (13.4-35.0) % [place] % (Auto) (0.0-7.3) % Lymph # (1.2-5.4) K/mm3 Seg Neutrophils # (1.8-7.7) K/mm3 Potassium 3.5 L (3.6-5.0) mmol/L Carbon Dioxide (22-30) mmol/L BUN 2 L (9-20) mg/dL Creatinine 0.5 L (0.8-1.5) mg/dL Glucose 108 H (75-100) mg/dL POC Glucose 60 L 136 H (70-105) Calcium 7.6 L (8.4-10.2) mg/dL AST 141 H (5-40) units/L ALT 133 H (7-56) units/L Total Creatine Kinase (55-170) units/L Plasma/Serum Alcohol (0-0.07) %
[2018-12-31] MEDS ORDERED: K-DUR PO ONE (13:05)
[2018-12-31] MEDS ORDERED: DIPRIVAN 10 MG/ML IV ONE ×2 (15:18)
[2018-12-31] MEDS ORDERED: VERSED ONE (15:33)
[2018-12-31] MEDS ORDERED: WATER FOR IRRIG STERILE IR ONE (16:01)
--- NOTE | 2018-12-31 16:32 | Post Operative Note ---
Pre-op diagnosis: Hematemesis Post-op diagnosis: other (Mild nonerosive gastritis. No varices, ulcers, or esophagitis.) Findings: 1. Normal EGD with mild-moderate erythema of stomach. Procedure: EGD Anesthesia: MAC Surgeon: SANTI MEHTA Estimated blood loss: none Pathology: none Condition: stable Disposition: floor (No evidence of bleed. Rectal exam shows light yellow-brown stool, no blood. Elevated LFTs due to EtOH, but could be hepatitis.)
--- NOTE | 2018-12-31 16:56 | Operative Report ---
PROCEDURE: Upper endoscopy. PREOPERATIVE DIAGNOSIS: Hematemesis. POSTOPERATIVE DIAGNOSIS: Mild nonerosive gastritis. SEDATION: MAC by Anesthesia. HISTORY: The patient is a 33-year-old man who abuses alcohol and has elevated alcohol in his blood stream. He has elevated liver enzymes. He describes hematemesis. Procedure, indications, risks, and benefits were explained and consent was obtained. The patient was placed in left lateral decubitus position and sedated. [employer] video upper endoscope was passed through the mouth and oropharynx into the descending duodenum. Scope was then gradually withdrawn with close inspection of the mucosa. FINDINGS: 1. Normal-appearing esophagus with sharp Z-line located at 37 cm from the incisors. There is no evidence of varices or Reyna-Richey tear. There was no evidence of esophagitis. 2. Mild to moderate patchy erythema throughout the gastric body consistent with mild nonerosive gastritis, may be related to alcohol. 3. Otherwise, normal stomach. 4. Normal appearing duodenal bulb and duodenum. The patient tolerated the procedure well without immediate complications. IMPRESSION: 1. Nonerosive gastritis. 2. Otherwise, normal upper endoscopy with no evidence of bleeding source. [facility]# [id number] HRC/NTS
--- NOTE | 2018-12-31 17:54 | Discharge Summary ---
Providers - Providers Date of Admission: 12/31/18 02:33 Date of discharge: 12/31/18 Attending physician: KE FRANCO 12/31/18 02:33 Consult to Physician [CONS] Routine Comment: Dr. Milner spoke with Dr. Leach @ [phone] Consulting Provider: CHRISTINA LEACH Physician Instructions: Reason For Exam: [facility] Primary care physician: BITA MCKEON Hospitalization Condition: Critical Pertinent studies: Head CT CT abdomen/pelvis Hospital course: Brief History: Patient is a 33 y/o male with PMH DM and ETOH abuse who presented to ED with c/o a syncopal episode (head CT negative; etiology likely 2/2 alcohol; blood alcohol level elevated upon admission), epigastric pain, and N/V with bloody emesis and dark stool, GI has been consulted. Abd CT showed enlarged fatty liver but no acute findings. s/p EGD showed no abnormality. Patient was then discharged with PPI in stable condition with outpt followup. Discharge diagnosis: Upper GI bleed - presented with hematemesis/dark stool (melena?) -- s/p EGD today, stable h/h, - cont PPI on discharge Alcohol abuse, monitored for withdrawal Transamionitis, likely from alcohol abuse -lipase WNL -plt 62, INR normal -abd CT showed enlarged fatty liver - outpt followup thrombocytopenia, likely from chronic alcohol abuse DVt Px, SCD Disposition: DC-01 TO HOME OR SELFCARE Time spent for discharge: 34 minutes Core Measure Documentation - Palliative Care Palliative Care/ Comfort Measures: Not Applicable - Core Measures Any of the following diagnoses?: history only Exam - Constitutional Vitals: Temp Pulse Resp BP Pulse Ox 98.5 F 81 15 114/81 95 12/31/18 16:27 12/31/18 16:53 12/31/18 16:53 12/31/18 16:53 12/31/18 16:53 General appearance: Present: no acute distress - EENT Eyes: Present: PERRL ENT: hearing intact, clear oral mucosa - Neck Neck: Present: supple, normal ROM - Respiratory Respiratory effort: normal Respiratory: bilateral: CTA - Cardiovascular Heart Sounds: Present: S1 & S2. Absent: rub, click - Extremities Extremities: pulses symmetrical, No edema Peripheral Pulses: within normal limits - Abdominal General gastrointestinal: Present: soft, non-tender, non-distended, normal bowel sounds - Integumentary Integumentary: Present: clear, warm, dry - Musculoskeletal Musculoskeletal: gait normal, strength equal bilaterally - Psychiatric Psychiatric: appropriate mood/affect, intact judgment & insight - Neurologic Neurologic: CNII-XII intact, moves all extremities Plan Activity: advance as tolerated Weight Bearing Status: Weight Bear as Tolerated Diet: low fat Additional Instructions: F/u with GI in two weeks Follow up with: BITA MCKEON MD [Primary Care Provider] - 7 Days Prescriptions: Pantoprazole [Protonix] 40 mg PO QDAY #30 tablet Thiamine [Vitamin B-1] 100 mg PO QDAY #30 tablet
[2018-12-31 18:01] VITALS: BP 127/77
== END 2018-12-31 19:20 | disposition home or self-care (01) | DRG 379 ==
LOC: ED 22:36 → 4A 12-31 02:33
PROVIDERS: ADMIT Internal Medicine; ATTEND Internal Medicine
PROC: 0DJ08ZZ Inspection of Upper Intestinal Tract, Via Natural or Artificial Opening Endoscopic (ICD-10-PCS; principal; 2018-12-31)
DX: K29.21 Alcoholic gastritis with bleeding (principal); E11.9 Type 2 diabetes mellitus without complications; F10.10 Alcohol abuse, uncomplicated; R74.0 Nonspecific elevation of levels of transaminase and lactic acid dehydrogenase [LDH]; D69.59 Other secondary thrombocytopenia; K52.9 Noninfective gastroenteritis and colitis, unspecified; R55 Syncope and collapse; Z82.49 Family history of ischemic heart disease and other diseases of the circulatory system
CPT/HCPCS: 36415; 70450; 74176; 80048; 80053; 80076; 80320; 82150; 82550; 82553; 82962; 83690; 84484; 85014; 85018; 85025; 85379; 85610; 86850; 86900; 86901; 93005; 93010; 94760; G0378; C9113; G0480; J2060; J2250; J2405; J2704; J3411; J7030